=== PATIENT | female | born 1995 | race Caucasian/White ===

== ENCOUNTER 2016-10-28 12:34 | Emergency (ER) | payer OTHER ==
[~2016-10-28 12:34] MED LIST: COLACE 100MG C100 MG PO; IBUPROFEN600 MG PO; IBUPROFEN800 MG PO; MELATONIN 5 MG1 EACH PO; NORCO 10-325 T1 EACH PO
== END 2016-10-28 13:45 | disposition home or self-care (01) ==
LOC: ER1 12:34
DX: S93.402A Sprain of unspecified ligament of left ankle, initial encounter (principal); W18.30XA Fall on same level, unspecified, initial encounter; Y92.009 Unspecified place in unspecified non-institutional (private) residence as the place of occurrence of the external cause
CPT/HCPCS: 29515; 73610; 99283

== ENCOUNTER → 2020-11-12 | Outpatient (CLI) | payer OTHER ==
[~2020-11-12] MED LIST changes: +FLAGYL500 MG PO; +MACROBID 100 M100 MG PO; +ZOFRAN ODT4 MG SL
== END ==
LOC: KOH-I 13:57
DX: M21.41 Flat foot [pes planus] (acquired), right foot (principal); M21.42 Flat foot [pes planus] (acquired), left foot
CPT/HCPCS: 73610; 73630; 73650

== ENCOUNTER → 2020-11-26 | Outpatient (CLI) | payer OTHER | LOC: KOH-I 08:44 | DX: Q66.89 Other specified congenital deformities of feet (principal); M65.871 Other synovitis and tenosynovitis, right ankle and foot; M72.2 Plantar fascial fibromatosis; M25.471 Effusion, right ankle; R93.6 Abnormal findings on diagnostic imaging of limbs | CPT/HCPCS: 73721 ==